=== PATIENT | female | born 1940 | race Caucasian/White ===

== ENCOUNTER 2017-11-18 11:33 | Inpatient (IN) | payer OTHER ==
[2017-11-18] VITALS (9 sets, daily range): BP systolic 92–141; BP diastolic 41–84; Ht 170.2 cm; Wt 77.7 kg
[~2017-11-18] VITALS: Ht 170.2 cm; Wt 77.7 kg
[2017-11-18 12:13] LABS: PLATELET COUNT 307 x10^3mcL (130-400); RED CELL DISTRIBUTION WIDTH 13.4 % (11.5-14.5)
[2017-11-18 12:20] LABS: CALCIUM 8.4 mg/dL (8.5-10.1); CARBON DIOXIDE 21.4 mmol/L (21-32); CHLORIDE SERUM 105 mmol/L (98-107); CREATININE SERUM 1.1 mg/dL (0.6-1.0); GLUCOSE SERUM 173 mg/dL (74-106); POTASSIUM SERUM 4.5 mmol/L (3.5-5.1); SODIUM SERUM 139 mmol/L (136-145)
[2017-11-18 12:24] LABS: ALBUMIN 3.6 g/dL (3.4-5.0); ALKALINE PHOSPHATASE 57 U/L (46-116); AST/SGOT 17 U/L (15-37); BILIRUBIN TOTAL 0.62 mg/dL (0.20-1.00); MAGNESIUM 1.4 mg/dL (1.8-2.4); TOTAL PROTEIN, SERUM 7.1 g/dL (6.4-8.2)
[2017-11-18 12:36] LABS: ALT/SGPT 20 U/L (14-59)
[2017-11-18 12:44] LABS: FREE T4 1.21 ng/dL (0.76-1.46); FREE THYROXINE INDEX 2.6 ug/dL (1.4-4.5); T4(THYROXINE) 6.7 ug/dL (4.7-13.3)
[2017-11-18 12:45] LABS: T3 TOTAL 1.11 ng/mL
[2017-11-18] MEDS ORDERED: ZESTRIL5 MG PO (12:57)
[2017-11-18] MEDS ORDERED: ARMOUR THYROID90 MG PO (12:57)
[2017-11-18] MEDS ORDERED: ASPIR LOW81 MG PO (12:57)
[2017-11-18] MEDS ORDERED: HYDROCHLOROTHIA25 MG PO (12:58)
[2017-11-18] MEDS ORDERED: METFORMIN500 M1 (12:58)
[2017-11-18] MEDS ORDERED: MELOXICAM7.5 M1 PO (13:01)
[2017-11-18] MEDS ORDERED: JANUVIA100 M1 PO (13:05)
[2017-11-18] MEDS ORDERED: CARDIZEM120 MG PO (13:08)
[2017-11-18 13:42] LABS: BAND NEUTROPHIL 7 % (0-10); MONOCYTE 3 % (0-7); SEGMENTED NEUTROPHILS 87 % (37-75); rbc morphology (normal/abnorm) NORMAL (NORMAL)
[2017-11-18 13:43] LABS: PLATELET MORPHOLOGY PLATELETS NORMAL
[2017-11-18 16:59] LABS: CHOLESTEROL/HDL RATIO 3.3
[2017-11-18 20:35] LABS: UA SPECIFIC GRAVITY 1.025 (1.005-1.035); microscopic required? YES; urine erythrocyte TRACE (NEGATIVE)
[2017-11-18 20:44] LABS: AMPHETAMINE QUAL UR NONE DETECTED (See below)
[2017-11-19 01:00] VITALS: BP 97/43
[2017-11-19 02:00] VITALS: BP 94/46
[2017-11-19 04:56] LABS: BASOPHIL % 0.2 % (0-2); PLATELET COUNT 239 x10^3mcL (130-400); RED CELL DISTRIBUTION WIDTH 13.6 % (11.5-14.5)
[2017-11-19 05:22] LABS: CALCIUM 7.3 mg/dL (8.5-10.1); CARBON DIOXIDE 20.2 mmol/L (21-32); CHLORIDE SERUM 106 mmol/L (98-107); CREATININE SERUM 0.9 mg/dL (0.6-1.0); GLUCOSE SERUM 128 mg/dL (74-106); MAGNESIUM 1.9 mg/dL (1.8-2.4); PHOSPHOROUS 2.4 mg/dL (2.5-4.9); POTASSIUM SERUM 3.6 mmol/L (3.5-5.1); SODIUM SERUM 135 mmol/L (136-145)
[2017-11-19 07:42] VITALS: BP 120/54
[2017-11-19 11:44] VITALS: BP 135/68
[2017-11-19] MEDS ORDERED: ELIQUIS5 MG PO (11:53)
[2017-11-19] MEDS ORDERED: KEFLEX500 M1 PO (11:53)
[2017-11-19] MEDS ORDERED: METOPROLOL TART25 M1 PO (11:53)
[2017-11-19] MEDS ORDERED: LAC PO (11:53)
[2017-11-19 12:27] VITALS: BP 127/67
== END 2017-11-19 13:45 | disposition home or self-care (01) | DRG 871 ==
LOC: ED 11:33 → DU 14:43 → IC 14:43 → DU 15:46 → IC 16:33
PROVIDERS: Emergency Medicine; Internal Medicine
DX: A41.9 Sepsis, unspecified organism (principal); N17.0 Acute kidney failure with tubular necrosis; I48.92 Unspecified atrial flutter; N39.0 Urinary tract infection, site not specified; I48.91 Unspecified atrial fibrillation; E11.65 Type 2 diabetes mellitus with hyperglycemia; E86.0 Dehydration; E83.42 Hypomagnesemia; E03.9 Hypothyroidism, unspecified; I34.1 Nonrheumatic mitral (valve) prolapse; Z79.4 Long term (current) use of insulin; Z68.25 Body mass index [BMI] 25.0-25.9, adult; Z87.891 Personal history of nicotine dependence; Z85.3 Personal history of malignant neoplasm of breast; Z79.84 Long term (current) use of oral hypoglycemic drugs
CPT/HCPCS: 82962; 83880; 84439; 85378; C9113; J0282; J0610; J2543; J3475; J3490; J7030; Q0092